=== PATIENT | male | born 1975 | race Caucasian/White ===

== ENCOUNTER 2018-11-17 15:03 | Emergency (ER) | payer BC ==
[2018-11-17 15:43] VITALS: BP 117/85
--- NOTE | 2018-11-17 16:08 | UC ---
General HPI - HPI Summary HPI Summary: posterior left shoulder pain radiating to upper arm and to left elbow, with tingling today. Pt states hx of injury, hit by fork lift 5-6 yrs ago for which he had extensive PT. Pain returned 1 week ago, worsening today. but also bypass pt 2008 Pleasant 43 yo gentleman c/o progressive worse L shoulder pain over the last several days. Did let up but then returned a couple days ago. no recent injury , but did have an injury several years ago, forklift hit post left shoulder. Some pain in lower neck too, starting about the same time as shoulder. Pain radiates down back of elbow ulcer region to prox left forearm. R handed. No weakness or distal dysesthesia. Works at [employer]. - History of Current Complaint Chief Complaint: UCUpperExtremity Stated Complaint: L SHOULDER PAIN Hx Obtained From: Patient Pain Intensity: 7 - Allergy/Home Medications Allergies/Adverse Reactions: Allergies Allergy/AdvReac Type Severity Reaction Status Date / Time cephalexin Allergy Intermediate n/v and Verified 11/17/18 15:44 ineffective PMH/Surg Hx/FS Hx/Imm Hx Previously Healthy: No - see hpi - Surgical History Surgical History: Yes Surgery Procedure, Year, and Place: gastric Bypass 2018. Cardiac double bypass 2007. left hip replaced - Social History Alcohol Use: None Substance Use Type: None Smoking Status (MU): Never Smoked Tobacco Type: Smokeless Tobacco Review of Systems All Other Systems Reviewed And Are Negative: Yes Constitutional: Positive: Negative, Other - see hpi Skin: Positive: Negative Eyes: Positive: Negative ENT: Positive: Negative Respiratory: Positive: Negative Cardiovascular: Positive: Negative Gastrointestinal: Positive: Negative Genitourinary: Positive: Negative Motor: Positive: Other - see hpi Neurovascular: Positive: Other - see hpi Musculoskeletal: Positive: Other: - see hpi Neurological: Positive: Other - see hpi Psychological: Positive: Negative Is Patient Immunocompromised?: No Physical Exam Triage Information Reviewed: Yes Appearance: Well-Nourished - sitting up. nad, but looks uncomfortble Vital Signs: Initial Vital Signs Temp 99 F 11/17/18 15:35 Pulse 86 11/17/18 15:35 Resp 17 11/17/18 15:35 BP 117/85 11/17/18 15:35 Pulse Ox 97 11/17/18 15:35 Vital Signs Reviewed: Yes Eye Exam: Normal ENT Exam: Normal Neck exam: Other - + arthritic evidence. + tender lower cervical L>R and upper thoracic L>R no point bone tenderness. + tender L post shoulder, + ac region. sign shoulder crepitus. ROM shoulder limited active and passive to approx 95 deg. + ax n sens present to LT Distal NVI. Good grasp and good distal pulses Respiratory Exam: Normal Respiratory: Positive: Chest non-tender, Lungs clear, Normal breath sounds, No respiratory distress, No accessory muscle use Cardiovascular Exam: Normal Cardiovascular: Positive: Pulses Normal Abdominal Exam: Normal Abdomen Description: Positive: Nontender Musculoskeletal Exam: Other - see neck Neurological Exam: Other - see neck Psychological Exam: Normal - conversing easily and appropriately Skin Exam: Normal - no visible or reported rash Course/Dx - Course Course Of Treatment: Reviewed shoulder xray report (completed prior to examination) d/w pt. Suspect concomitant neck / back challenges. xrays ordered, cervical and thoracic. reviewed with pt. Reports in [employer]. [facility] Reference #: [id number] oxycodone #32 11/18/2017 (one year) Reviewed usual narc talk / questions. No immediate issues reported. Not able to take nsaids d/t hx gastric bypass. F/u PCP and orthopedist. His orthopedist is in [place]. advised to f/u pcp re pain issues / medication (nsaid alt?) Sling - if not uncomfortable to neck - for comfort re shoulder as needed. Reviewed coa / tx plan. Questions as posed answered to the best of my ability. Declines work note. - Diagnoses Provider Diagnosis: Arthritis, AC (acromioclavicular) joint arthritis, DJD (degenerative joint disease) Discharge - Sign-Out/Discharge Documenting (check all that apply): Patient Departure All imaging exams completed and their final reports reviewed: Yes - Discharge Plan Condition: Stable Disposition: HOME Prescriptions: Hydrocodone/Acetaminophen [[place] 5-325 Tablet] 1 each PO Q4H #24 tablet MDD 6 Patient Education Materials: Osteoarthritis (ED), Degenerative Disc Disease (ED ) Referrals: No Primary Care Phys,NOPCP [Primary Care Provider] - Armand Burks MD [Medical Doctor] - Additional Instructions: Sling for comfort as needed. Do not wear sling if your neck hurts, or if your pain worsens. Be sure to follow up with your primary care physician in [place] - call tomorrow to schedule appointment for next week. Schedule an appointment with your orthopedic surgeon. If you are not able to follow with your orthopedic surgeon in [place], then you may follow with orthopedics here in [place]. Do not drive or operate heavy machinery while taking prescription pain medication. - Billing Disposition and Condition Condition: STABLE Disposition: Home
== END 2018-11-17 17:49 | disposition home or self-care (01) ==
LOC: UCEAST 15:03
DX: M19.012 Primary osteoarthritis, left shoulder (principal); Z98.84 Bariatric surgery status
CPT/HCPCS: 72050; 72070; 99203; G0463

== ENCOUNTER 2019-02-02 05:42 | Observation (INO) | payer BC ==
[~2019-02-02 05:42] MED LIST: Buffered Lidocaine 1% SYRIN* 1 ML/SYRINGE INTRADERM ONE; Tranexamic Acid 1,000 MG in NS 0.9% 50 ML* (outpatient use) IV SCH; Vancomycin(*) 1,000 MG in NS 0.9% 250 ML* 250 ML IVPB SCH
--- OUTSIDE RECORDS SUMMARY | 2019-02-02 05:45 | XMS REPORT | Continuity of Care Document ---
:1975 External Reference #:[id number] Author Name Bethanie Schultz MD (transmitted by agent of provider Nora Roberts ) Address [address] [place] [address] [place] [address] Care Team Providers Name Role Phone Fredis Hatch MD - Internal Medicine Care Team Information Loan Examiner Problems Description No Active Problems Social History Type Date Description Comments Sex Unknown ETOH Use Denies alcohol use Smoking Uses Chewing Tobacco Recreational Drug Use Denies Drug Use Exercise Type/Frequency Exercises regularly Allergies, Adverse Reactions, Alerts Active Allergies Reaction Severity Comments Date Antibiotic PT Unsure The Name 01/06/2019 Medications Active Medications SIG Qnty Indications Ordering Provider Date Omeprazole 1 by mouth 90capalma Burks MD 11/22/2018 20mg Capsules every day Simvastatin 1 by mouth Unknown 40mg Tablets every day Lisinopril 1 by mouth Unknown 5mg Tablets every day History Medications Medrol take as directed 1pjocelyn Burks MD 11/22/2018 - 4mg TBPK 01/06/2019 Immunizations Description No Information Available Vital Signs Date Vital Result Comment 01/06/2019 9:05am Height 64 inches 5'4" Weight 183.00 lb Heart Rate 62 /min BP Systolic Sitting 124 mmHg BP Diastolic Sitting 82 mmHg O2 % BldC Oximetry 93 % BMI (Body Mass Index) 31.4 kg/m2 11/22/2018 11:30am Height 64 inches 5'4" Weight 183.00 lb Heart Rate 72 /min BP Systolic 128 mmHg BP Diastolic 80 mmHg Respiratory Rate 18 /min Body Temperature 98.0 F Pain Level 7 BMI (Body Mass Index) 31.4 kg/m2 Results Description No Information Available Procedures Description No Information Available Medical Devices Description No Information Available Encounters Type Date Location Provider Dx Diagnosis Office Visit 11/22/2018 Orthopedic Services Armand Burks MD M54.2 Cervicalgia 11:00a Of [facility] M54.12 Radiculopathy, cervical region M25.512 Pain in left shoulder Assessments Date Code Description Provider 01/06/2019 M54.2 Cervicalgia Bethanie Schultz MD 01/06/2019 M54.12 Radiculopathy, cervical region Bethanie Schultz MD 01/06/2019 M47.22 Other spondylosis with radiculopathy, Bethanie Schultz MD cervical region 11/22/2018 M54.2 Cervicalgia Armand Burks MD 11/22/2018 M54.12 Radiculopathy, cervical region Armand Burks MD 11/22/2018 M25.512 Pain in left shoulder Armand Burks MD Plan of Treatment 01/06/2019 - Bethanie Schultz MDM54.2 OprugqawgdvP09.12 Radiculopathy, cervical keoivbP62.22 Other spondylosis with radiculopathy, cervical regionFollow up:RV 1 week, one month, three months postop Functional Status Description No Information Available Mental Status Description No Information Available Referrals Refer to Dr Reason for Referral Status Appt Date Bethanie Schultz MD Sent [address] [place] [id number] [phone]
[2019-02-02] MEDS ORDERED: Famotidine IV* 10 MG/ML 2 ML (20 mg) ONE (06:00)
[2019-02-02] MEDS ORDERED: Lactated Ringers 1000 ML Bag* 1,000 ML IV SCH (06:00)
[2019-02-02] MEDS ORDERED: Bupivacaine 0.25% W/EPI* 10 ML SDV ONE (06:44)
[2019-02-02] MEDS ORDERED: Bacitracin INJECTION* 50,000 UNITS ONE (06:44)
[2019-02-02] MEDS ORDERED: Lidocaine 2% PF * 5 ML VIAL ONE (07:30)
[2019-02-02] MEDS ORDERED: Propofol* 10 MG/ML 20 ML BTL ONE (07:30)
[2019-02-02] MEDS ORDERED: fentaNYL* 50 MCG/ML 2 ML VIAL (100 MCG VIAL) ONE (07:31)
[2019-02-02] MEDS ORDERED: Rocuronium* 10 MG/ML VIAL ONE ×2 (07:31→09:18)
[2019-02-02] MEDS ORDERED: Midazolam* 1 MG/ML 2 ML VIAL (2 MG) ONE (07:31)
[2019-02-02] MEDS ORDERED: Metoclopramide IV* 5 MG/ML 2 ML VIAL ONE ×2 (08:33→19:20)
[2019-02-02] MEDS ORDERED: Dexamethasone IV* 4 MG/ML 1 ML (4 MG) ONE ×2 (08:33→08:48)
[2019-02-02] MEDS ORDERED: Ketorolac INJ* 30 MG/ML 1 ML VIAL ONE ×2 (08:33→19:20)
[2019-02-02] MEDS ORDERED: Ondansetron INJ* 2 MG/ML VIAL ONE ×3 (08:33→19:20)
[2019-02-02] MEDS ORDERED: Succinylcholine* 20 MG/ML 10 ML VIAL ONE (08:33)
[2019-02-02] MEDS ORDERED: KETAMINE HCL* 50 MG/ML 10 ML VIAL ONE (08:37)
[2019-02-02] MEDS ORDERED: Phenylephrine 40 MCG/ML SYRINGE ONE (08:41)
[2019-02-02] MEDS ORDERED: VASOPRESSIN 20 UNITS/ML 1 ML VIAL ONE (08:42)
[2019-02-02] MEDS ORDERED: Phenylephrine 10 MG/ML VIAL* 1 ML VIAL ONE (09:22)
[2019-02-02] MEDS ORDERED: Naloxone* 0.4 MG/ML 1 ML VIAL IV PRN (10:22)
[2019-02-02] MEDS ORDERED: DiMENhydriNATE IV* 50 MG/ML VIAL IV PUSH PRN (10:22)
[2019-02-02] MEDS ORDERED: oxyCODONE TAB* 5 MG TAB PO PRN (10:22)
[2019-02-02] MEDS ORDERED: HYDROmorphone INJ1* 1 MG/ML SYRINGE IV PRN (10:22)
[2019-02-02] MEDS ORDERED: Glycopyrrolate IV* 0.2 MG/ML 1 ML VIAL ONE (10:41)
[2019-02-02] MEDS ORDERED: HYDROmorphone INJ1* 1 MG/ML SYRINGE ONE ×3 (10:41→19:20)
[2019-02-02] MEDS ORDERED: Neostigmine Methylsulfate* 1 MG/ML 10 ML VIAL (1 mg/ml) ONE (10:41)
[2019-02-02] MEDS ORDERED: Acetaminophen IV 1GM/100ML * 0 ML ONE (11:06)
[2019-02-02] MEDS ORDERED: oxyCODONE TAB* 5 MG TAB ONE (12:36)
[2019-02-02] MEDS ORDERED: Acetaminophen TAB* 325 MG PO PRN (12:51)
[2019-02-02] MEDS ORDERED: Zolpidem TAB* 10 MG PO PRN (12:51)
[2019-02-02] MEDS ORDERED: Magnesium Hydroxide LIQ* 30 ML UDC PO PRN (12:51)
[2019-02-02] MEDS ORDERED: HYDROcodone/ACETAMIN 5-325 MG* 1 TAB PO PRN (12:51)
[2019-02-02] MEDS ORDERED: Ondansetron INJ* 2 MG/ML VIAL IV PRN (12:51)
--- NOTE | 2019-02-02 15:42 | CONS ---
CC: Dr. Schultz; Dr. Prince Adrian * CONSULTATION REPORT: DATE OF CONSULT: 02/02/19 TIME OF EVALUATION: 2 p.m. REQUESTING PHYSICIAN: Dr. Schultz. PRIMARY CARE PROVIDER: Dr. Prince Adrian. REASON FOR CONSULT: Management of comorbidities. HISTORY OF PRESENT ILLNESS: Mr. Chi is a 43-year-old male with a past medical history of coronary artery disease, hypertension, obstructive sleep apnea, hyperlipidemia, status post Eren-en-Y gastric bypass, status post left total joint replacement, who presented to Dr. Schultz' office with complaints of neck pain radiating to his left upper extremity. As per Dr. Schultz, the patient had tried several conservative treatment modalities, but continued to have significant difficulties with daily activities. He had MRI findings consistent with a left C7 to T1 disk herniation, so Dr. Schultz ' recommendation was for posterior cervical laminoforaminotomy with possible diskectomy at C7 and T1 and the patient was admitted today for the proposed procedure. As per Dr. Schultz, the surgery went well with no significant complications. At the time of my evaluation, the patient is recovering in the PACU and he states he has some soreness at the back of his neck, but otherwise denies any other symptoms. PAST MEDICAL HISTORY: 1. Coronary artery disease, status post CABG in 2007. 2. Hypertension. 3. Obstructive sleep apnea. The patient states that he had a Eren-en-Y gastric bypass and lost a significant amount of weight (as per PCP note, initial weight was 278 in October 2017 and in our system, he now weighs 195 pounds) . He states that at this point he does not wear CPAP any longer. 4. Diet-controlled diabetes. PAST SURGICAL HISTORY: 1. Status post right inguinal hernia repair. 2. Status post left total hip arthroplasty in 2013. MEDICATION LIST: 1. Gabapentin 300 mg p.o. at bedtime. 2. Lisinopril 5 mg p.o. daily. 3. Omeprazole 20 mg p.o. b.i.d. 4. Simvastatin 40 mg p.o. daily. ALLERGIES: The patient had reaction to DOXYCYCLINE, CORTISONE, and LIDOCAINE. FAMILY HISTORY: Reviewed and noncontributory. SOCIAL HISTORY: The patient is not a smoker, but he chews tobacco. He denies alcohol use, but has significant caffeine consumption. Surrogate decision- maker is his significant other, Antonella Diaz, phone number [phone]. REVIEW OF SYSTEMS: A 10-point review of systems was performed and all the pertinent negative and positive findings are in the HPI. PHYSICAL EXAM: Vital Signs: Temperature 98.4, heart rate is 65, respiratory rate is 16, oxygen saturation 95% on room air, blood pressure is 103/53. General: The patient is an overweight gentleman, sitting up in a recliner, in no acute distress. HEENT: Pupils are equal. The patient has a soft C-collar in place and KANCHAN drain is seen in the cervical spine area. CVS: Normal S1, S2. Regular rate and rhythm. Chest: Breath sounds present bilaterally with no added sounds. Abdomen is soft. Bowel sounds are present. Extremities: No edema. Neuro: The patient is alert and oriented x3. He is able to move all 4 extremities. He denies any sensory change at this time. ASSESSMENT AND PLAN: Mr. Chi is a 43-year-old male with a past medical history of diet-controlled type 2 diabetes; coronary artery disease, status post CABG in 2007; hypertension; obstructive sleep apnea, not on CPAP anymore as the patient has lost a significant amount of weight after a Eren-en-Y gastric bypass; hyperlipidemia, who was admitted for an elective posterior cervical laminoforaminotomy with C7 to T1 diskectomy. 1. Postsurgical management will be as per Neurosurgery. 2. Type 2 diabetes. We will check fingersticks a.c. and h.s. and if glucose greater than 180, we will add insulin lispro sliding scale. 3. Hypertension is controlled at this time. We will continue lisinopril with holding parameters. 4. Obstructive sleep apnea. The patient states that after significant weight loss he has not needed CPAP anymore. At this time, we are going to monitor his pulse oximetry for the next 24 hours. 5. Coronary artery disease, status post CABG. The patient will be monitored on telemetry. It is unclear from the records why the patient is not on aspirin. Even before surgery, I do not see documentation of aspirin on his list and metoprolol had been discontinued before. 6. Gastroesophageal reflux disease. We will continue omeprazole. 7. DVT prophylaxis will be with SCDs for now. He will have pharmacological prophylaxis if deemed appropriate by Neurosurgery. 8. Code status is full. TIME SPENT: Approximately 45 minutes was spent with the patient and family's interview, medical records review, physical examination to complete this admission, more than half of this time was spent [id number] with the patient and coordination of care. [id number]/[facility] #: [id number] ZAID
--- NOTE | 2019-02-02 17:48 | PN ---
Hospitalist Progress Note Date of Service: 02/02/19 HOSPITALIST ADDENDUM Patient noted to have irregular rhythm on Telemetry. EKG shows sinus arrhythmia at 64bpm. Will continue to monitor.
[2019-02-02] MEDS: HYDROcodone/ACETAMIN 5-325 MG* 1 TAB PO PRN (19:06)
[2019-02-02] MEDS ORDERED: Dextrose 50% VIAL 50 ml IV PUSH PRN (19:13)
[2019-02-02] MEDS ORDERED: Acetaminophen IV 1GM/100ML * 100 ML ONE (19:20)
--- NOTE | 2019-02-02 19:52 | OP ---
DATE OF OPERATION: 02/02/19 - ROOM #335 DATE OF : 71 SURGEON: Bethanie Schultz MD YARDAGE ESTIMATOR: KARLOS Molina. The case was done with the assistance of KARLOS because of the complexity of the case. ANESTHESIA: General. PRE-OP DIAGNOSIS: Left C7-T1 herniated nucleus pulposus. POST-OP DIAGNOSIS: Left C7-T1 herniated nucleus pulposus. OPERATIVE PROCEDURE: The patient underwent left C7-T1 laminoforaminotomy with partial diskectomy. ESTIMATED BLOOD LOSS: 35 cc. COMPLICATIONS: None. SUMMARY: The patient is a very pleasant 43-year-old gentleman with complaints of severe left upper extremity pain, weakness and loss of sensation with MRI findings consistent with multilevel degenerative disk disease with large left C7 -T1 herniated nucleus pulposus. After failing conservative treatment modalities , he was offered the option of surgical intervention in the form of a left C7- T1 laminoforaminotomy. After discussing in extent with the patient and his family including his mother and his fiancee regarding the expectations, limitations, and possible complications of the procedure with complications including, but not limited to bleeding, infection, risk of injury to adjacent structures, coma, paralysis, , need for additional procedures, anesthesia risks, stroke, blindness, cancer, instability, cervicothoracic kyphosis, recurrence of disk herniation, persistence of pain, spinal fluid leak, postoperative hematoma, spinal cord injury, terminal nerve damage, neuropathy, reflex sympathetic dystrophy, need for tracheostomy or gastrostomy, need for prolonged ICU stay, prolonged rehabilitation, prolonged hospitalization, deep venous thrombosis, pulmonary embolism, heart attack; the patient was agreeable to proceed with surgery and informed consent was obtained. The patient understood that his condition may not improve and in fact may get worse after surgery and that he may need to have additional procedures in the future. He also understood that operative plan may be modified according to intraoperative findings and conditions and that the procedure may be aborted or done in more than 1 stages. DESCRIPTION OF PROCEDURE: The patient was brought to the operating room and was placed under general anesthesia by the anesthesia team. He was carefully positioned prone on the Steve table and all bony prominences were meticulously padded. His skin was prepped and draped in the standard fashion and after appropriate surgical pause and patient identification, a small incision over the C6 to T2 spinous processes was marked on the skin. The skin was infiltrated with local anesthetic and after incising the skin with #10 surgical blade, the incision was carried down to the subcutaneous tissue with Bovie cautery. Self-retaining retractors were introduced into the field. The dorsal fascia was then divided in left side of the midline with use of Bovie cautery and the paraspinal musculature was elevated in subperiosteal fashion with use of periosteal elevator and Bovie cautery. The tubular METRx retractor system was then introduced into the field. A 22-mm tube was used for this case. Intraoperative fluoroscopic imaging confirmed appropriate surgical level and microscope was brought into the view. After exposing the lamina of C7 and T1 as well as the facet at C7 and T1, high-speed drill and #1 Kerrison punches were used to perform a medial facetectomy and foraminotomy. The ligamentum flavum was then gently reflected and removed with #1 Kerrison punches and after meticulous hemostasis, copious irrigation and meticulous inspection, the pedicle of C1 was gently skeletonized in the medial and superior aspect with use of #1 Kerrison. Then, a small micro nerve hook was used to palpate underneath the thecal sac and the nerve root and large protrusion under the posterior longitudinal ligament was identified as expected from the preoperative imaging. After gently incising the posterior longitudinal ligament , large disk fragments were readily identified and were gently removed with use of nerve hook and micro pituitary. At the end of the decompression and diskectomy, the thecal sac as well as the nerve root was found to be free of any pressure phenomenon and after confirmation of meticulous hemostasis, copious irrigation and meticulous inspection, the O-arm was brought into the field in order to confirm the appropriate surgical level. O-arm imaging confirmed the surgical level and after removing the tubular retractor and confirmation of meticulous hemostasis, copious irrigation and meticulous inspection, the wound was closed by layers over a Clovis drain which was tunneled through a separate stab wound incision. The dorsal fascia was approximated with 0 interrupted Vicryl sutures while the subcutaneous tissue was approximated with 2-0 inverted interrupted Vicryl sutures. The skin was then covered with Dermabond. At the end of the procedure, all counts were reported to be correct. The patient remained hemodynamically stable throughout the case. The patient was then turned supine, was extubated and was transferred to Recovery in excellent condition. [id number]/[facility] #: [id number] ZAID
[2019-02-02] MEDS ORDERED: Gabapentin CAP(*) 300 MG PO SCH (21:00)
[2019-02-02] MEDS: Insulin LISPRO* 1 UNITS UNIT SUBCUT SCH (21:57)
[2019-02-02] MEDS: Pantoprazole TAB * 40 MG TAB PO SCH (21:59)
[2019-02-03] MEDS: Pantoprazole TAB * 40 MG TAB PO SCH (07:42)
[2019-02-03] MEDS: HYDROcodone/ACETAMIN 5-325 MG* 1 TAB PO PRN (07:42)
[2019-02-03] MEDS: Insulin LISPRO* 1 UNITS UNIT SUBCUT SCH (07:47)
[2019-02-03] MEDS ORDERED: Atorvastatin* 20 MG TAB PO SCH (09:00)
[2019-02-03] MEDS ORDERED: Lisinopril TAB* 5 MG PO SCH (09:00)
[2019-02-03 12:22] VITALS: BP 120/68
--- NOTE | 2019-02-03 21:25 | PN ---
Progress Note - Progress Note Date of Service: 02/03/19 SOAP: Subjective: []Patient was seen earlier today. No events ON. Preop LUE pain resolved. Ambulates, Tolerates PO well, Voids. Wants to go home Objective: []VSS, Afebrile Wounds,c,d Drain output noted. Drain was removed. Catheter appeared to be intact. No complications. Patient tolerated procedure well. AAOx3 FALLON, CN II-XII grossly intact Motor 5/5 all extremities Sensory grossly intact to light touch Assessment: []43 yom POD#1 Left C7-T1 laminoforaminotomy Plan: []Monitor VS, Neurochecks OOB as tolerated with assistance. DC planning for NS standpoint. Full instructions were given. No bending, no lifting, no driving Keep incision dry for two days. May shower, No baths Follow up in office in 7-10 days. Patient was found to have bradycardia on tele. Will keep monitoring per IM. Appreciate IM care. Maura Schultz MD
--- NOTE | 2019-02-04 13:16 | PN ---
Progress Note - Progress Note Date of Service: 02/04/19 Note: Patient did very well and was dc today prior to rounds Appreciate IM care. Maura Schultz MD
--- NOTE | 2019-02-04 19:06 | DS ---
CC: Dr. Prince Adrian; Dr. Bethanie Schultz * DISCHARGE SUMMARY: DATE OF ADMISSION: 02/02/19 DATE OF DISCHARGE: 02/03/19 PRIMARY CARE PROVIDER: Dr. Prince Adrian. MY ATTENDING WHILE IN THE HOSPITAL: Dr. Gamaliel Mancia.* (DICTATED BY DORA MEYER) NEUROSURGEON: Dr. Bethanie Schultz. PRIMARY DISCHARGE DIAGNOSIS: Spinal stenosis, status post cervical laminoforaminotomy and partial diskectomy. SECONDARY DISCHARGE DIAGNOSES: 1. Diabetes mellitus type 2. 2. Coronary artery disease. 3. Obstructive sleep apnea. 4. History of gastric bypass. 5. Hypertension. 6. Status post coronary artery bypass grafting. STUDIES DONE WHILE IN THE HOSPITAL: EKG from 02/02/19 shows sinus arrhythmia. No significant abnormalities. No hypertrophy or enlargement. No ST segment elevation or depression. Normal axis. MEDICATIONS AT DISCHARGE: 1. Omeprazole 20 mg p.o. b.i.d. 2. Lisinopril 5 mg p.o. daily. 3. Simvastatin 1 tab p.o. daily. 4. Gabapentin 300 mg p.o. at bedtime. 5. Tylenol 650 mg p.o. q.4 hours as needed. 6. [place] 5/325 one to two tabs p.o. q.4 hours as needed for [id number]-[id number] pain. HOSPITAL COURSE: This is a brief summary of the patient's presentation. For more details, please see the history and physical from Dr. Bethanie Schultz on 02/02/19 as well as the consultation from Dr. Claudia Tejada on 02/02/19. In brief, the patient is a 43-year-old male with past medical history significant for the above, who was evaluated by Dr. Schultz for neck pain radiating to his left upper extremity. After failing conservative measures, the patient underwent an elective posterior cervical laminoforaminotomy with microdiskectomy on 02/02/19 and had no complications related to this. The patient was in a [place] J-collar and a soft brace after the surgery. The patient was found to have elevated blood sugars and was started on insulin while in the hospital. The patient had no other significant abnormalities. The patient was able to perform well with physical therapy and had minimal pain. The patient had an EKG as above for irregular heartbeat showing sinus arrhythmia. The patient was able to be weaned off IV pain medication. The patient's hemoglobin A1c checked which was at 6.4. The patient was stable and amenable for discharge to home on 02/03/19. PHYSICAL EXAM ON THE DAY OF DISCHARGE: General: The patient is a 43-year-old male, who appears stated age and sitting comfortably in bed, in no acute distress. The patient is in a soft surgical collar. HEENT: Head normocephalic , atraumatic. Sclerae anicteric. No conjunctival injection. Nasal mucosa moist. Oral mucosa moist. No pharyngeal erythema, discharge, or exudate. Vital Signs: Temperature 97.7, pulse rate 66, respiratory rate 18, oxygen saturation 95% on room air, blood pressure 120/68. Neck: Supple, nontender. No lymphadenopathy. Surgical incision without drainage, covered by bulky dressing, not visualized. Cardiac: Regular rate and rhythm. No clicks, murmurs, gallops, or rubs. Pulses are 2+ in the bilateral dorsalis pedis, posterior tibialis, and radial areas. Respiratory: Clear to auscultation bilaterally. No wheezes, rales, or rhonchi. Good air exchange bilaterally. Abdomen: Soft, nontender, nondistended. Bowel sounds present and normoactive in all 4 quadrants. No hepatosplenomegaly. No abdominal bruits auscultated. No hepatojugular reflux. Genitourinary: No suprapubic or CVA tenderness. Skin : Clean, dry, and intact. No rash. Neuro: Cranial nerves II through XII intact. No focal deficits. Alert and oriented x3. Psychiatric: Pleasant and cooperative. DISCHARGE PLAN BY PROBLEM: 1. Cervical spinal stenosis due to herniated nucleus pulposus. The patient is status post surgery and doing well. The patient will have a soft collar for comfort. The patient should have no lifting, bending, or driving until cleared by his surgeon. The patient will have a wound check in 7 to 10 days. The patient should not take a bath, leave his dressing on for 2 days before taking a full shower. The patient should have Percocet for pain control and gabapentin as above. 2. Diabetes mellitus type 2. The patient has hemoglobin A1c of 6.4. Discussed with the patient that he should follow up with his primary care provider to discuss possible initiation of treatment. The patient's blood sugars were trending down after his surgery without intervention while in the hospital. 3. Hypertension. The patient was normotensive while in the hospital. Continue his lisinopril. 4. GERD. Continue the patient's omeprazole. 5. Hyperlipidemia. Continue the patient's simvastatin. CONDITION: Stable. DISPOSITION: Home. TIME SPENT: Approximately 60 minutes was spent on the discharge of this patient , 30 of which was spent [id number] with the patient obtaining history and physical and discussing treatment plan. DORA MEYER [id number]/[facility] #: [id number] ZAID
== END 2019-02-03 12:58 | disposition home or self-care (01) ==
LOC: INTOOBSV 05:42 → AA 05:42 → SSU 12:51
PROVIDERS: ADMIT Neurological Surgery; ATTEND Internal Medicine
DX: M50.13 Cervical disc disorder with radiculopathy, cervicothoracic region (principal); M47.22 Other spondylosis with radiculopathy, cervical region; M48.00 Spinal stenosis, site unspecified; E11.9 Type 2 diabetes mellitus without complications; I25.10 Atherosclerotic heart disease of native coronary artery without angina pectoris; G47.33 Obstructive sleep apnea (adult) (pediatric); I10 Essential (primary) hypertension; Z98.84 Bariatric surgery status; Z79.899 Other long term (current) drug therapy; E78.5 Hyperlipidemia, unspecified; K21.9 Gastro-esophageal reflux disease without esophagitis; Z95.1 Presence of aortocoronary bypass graft
CPT/HCPCS: 36415; 76000; 83036; 93005; A9270-GY; G0378; J0330; J1100; J1170; J1885; J2250; J2405; J2704; J2710; J2765; J3010; J3370

== ENCOUNTER 2019-03-09 11:12 | Emergency (ER) | payer BC ==
--- OUTSIDE RECORDS SUMMARY | 2019-03-09 11:17 | XMS REPORT | Continuity of Care Document ---
:1975 External Reference #:[id number] Author Name Bethanie Schultz MD (transmitted by agent of provider Nora Roberts ) Address [address] [place] [address] [place] [address] Care Team Providers Name Role Phone Prince Adrian DO - Internal Care Team Information Lifestyle Block Farmer [phone] Medicine Problems Description No Active Problems Social History Type Date Description Comments Sex Unknown ETOH Use Denies alcohol use Smoking Uses Chewing Tobacco Recreational Drug Use Denies Drug Use Exercise Type/Frequency Exercises regularly Allergies, Adverse Reactions, Alerts Active Allergies Reaction Severity Comments Date Antibiotic PT Unsure The Name 01/06/2019 Medications Active Medications SIG Qnty Indications Ordering Provider Date Soft Cervical Collar After surgery at [facility] 01/06/2019 all times MD [place] Omeprazole 1 by mouth every 90caps Armand Burks 11/22/2018 20mg day MD [place] KEYES Simvastatin 1 by mouth every Unknown 40mg day Tablets Lisinopril 1 by mouth every Unknown 5mg day Tablets Gabapentin Take One Capsule Unknown 100mg By Mouth AT Capsules Bedtime For 3 Days Then 2 Capsules For 3 Days Then3 Capsules Thereafter History Medications Medrol take as directed 1pjocelyn Burks MD 11/22/2018 - 4mg TBPK 01/06/2019 Immunizations Description No Information Available Vital Signs Date Vital Result Comment 02/10/2019 8:58am Height 64 inches 5'4" Weight 183.00 lb BP Systolic 124 mmHg BP Diastolic 78 mmHg Pain Level 4 BMI (Body Mass Index) 31.4 kg/m2 01/06/2019 9:05am Height 64 inches 5'4" Weight 183.00 lb Heart Rate 62 /min BP Systolic Sitting 124 mmHg BP Diastolic Sitting 82 mmHg O2 % BldC Oximetry 93 % BMI (Body Mass Index) 31.4 kg/m2 Results Test Date Facility Test Result H/L Range Note Urinalysis Profile 01/25/2019 [facility] Urine Color Yellow [address] [place] [address] [phone] Urine Appearance Clear Urine Specific Bud 1.020 Normal 1.010-1.030 Urine pH 6.0 Normal 5-9 Urine Urobilinogen Positive Abnormal Negative Urine Ketones Negative Negative Urine Protein Negative Negative Urine Leukocytes Negative Negative Urine Blood Negative Negative Urine Nitrite Negative Negative Urine Bilirubin Negative Negative Urine Glucose Negative Negative Inr/Protime 01/25/2019 [facility] Inr 1.06 Normal 0.82-1.09 1 [address] [place] [address] [phone] Laboratory test 01/25/2019 [facility] Partial 38.4 High 26.0- 38.0 finding [facility] [place] [address] Time PTT [phone] CBC No Diff 01/25/2019 [facility] White Blood 4.4 10^3/uL Normal 3.5-10.[address] [place] [address] [phone] Red Blood Count 5.45 10^6/uL Normal 4.18-5.48 Hemoglobin 14.6 g/dL Normal 14.0-18.0 Hematocrit 45 % Normal 42-52 Mean Corpuscular Volume 83 fL Normal 80-94 Mean Corpuscular Hemoglobin 27 pg Normal 27-31 Mean Corpuscular HGB Conc 32 g/dL Normal 31-36 Red Cell Distribution Width 15 % Normal 10-15 Platelet Count 136 10^3/uL Low 150-450 Mean Platelet Volume 7.8 fL Normal 7.4-10.4 Basic Metabolic 01/25/2019 [facility] Sodium 142 mmol/L Normal 135-[address] [place] [address] [phone] Potassium 4.0 mmol/L Normal 3.5-5.0 Chloride 106 mmol/L Normal 101-111 Co2 Carbon Dioxide 30 mmol/L Normal 22-32 Anion Gap 6 mmol/L Normal 2-11 Glucose 88 mg/dL Normal 70-100 Blood Urea Nitrogen 9 mg/dL Normal 6-24 Creatinine 0.88 mg/dL Normal 0.67-1.17 BUN/Creatinine Ratio 10.2 Normal 8-20 Calcium 9.2 mg/dL Normal 8.6-10.3 Egfr Non- 93.6 >60 Egfr 113.3 >60 2 Type & Screen 01/25/2019 [facility] Patient Blood Type AB Positive [address] [place] [address] [phone] Antibody Screen NEGATIVE 1 Standard intensity warfarin therapeutic range: 2.0-3.0 High intensity warfarin therapeutic range: 2.5-3.5 2 Because ethnic data is not always readily available, this report includes an eGFR for both -Americans and non- Americans. The National Kidney Disease Education Program (NKDEP) does not endorse the use of the MDRD equation for patients that are not between the ages of 18 and 70, are , have extremes of body size, muscle mass, or nutritional status, or are non- or non-. According to the National Kidney Foundation, irrespective of diagnosis, the stage of the disease is based on the level of kidney function: Stage Description GFR(mL/min/1.73 m(2)) 1 Kidney damage with normal or decreased GFR 90 2 Kidney damage with mild decrease in GFR 60-89 3 Moderate decrease in GFR 30-59 4 Severe decrease in GFR 15-29 5 Kidney failure <15 (or dialysis) Procedures Date Code Description Status 01/25/2019 46947 EKG, Interpretation Only Completed Medical Devices Description No Information Available Encounters Type Date Location Provider Dx Diagnosis Office Visit 01/06/2019 [facility] M54.2 Cervicalgia 9:30a Of Filippo Schultz MD M54.12 Radiculopathy, cervical region Office Visit 11/22/2018 11:00a [facility] Armand Burks M54.2 Cervicalgia at [place] M54.12 Radiculopathy, cervical region M25.512 Pain in left shoulder Assessments Date Code Description Provider 02/10/2019 M54.2 Cervicalgia Bethanie Schultz MD 02/10/2019 M47.22 Other spondylosis with Bethanie Schultz MD radiculopathy, cervical region 01/25/2019 I25.10 Atherosclerotic heart disease of Prince Grigsby M.D., [facility] [place] coronary artery without angina pectoris 01/09/2019 M54.2 Cervicalgia Bethanie Schultz MD 01/09/2019 M54.12 Radiculopathy, cervical region Bethanie Schultz MD 01/09/2019 M47.22 Other spondylosis with Bethanie Schultz MD radiculopathy, cervical region 01/06/2019 M54.2 Cervicalgia Bethanie Schultz MD 01/06/2019 M54.12 Radiculopathy, cervical region Bethanie Schultz MD 11/22/2018 M54.2 Cervicalgia Armand Burks MD 11/22/2018 M54.12 Radiculopathy, cervical region Armand Burks MD 11/22/2018 M25.512 Pain in left shoulder Armand Burks MD Plan of Treatment Future Appointment(s):05/10/2019 1:30 pm - DORA Montelongo at [facility]03/10/2019 1:30 pm - DORA Montelongo at [facility]02/10/2019 - Bethanie Schultz, MDM54.2 [id number] Other spondylosis with radiculopathy, cervical regionFollow up:RV in 1 month Functional Status Description No Information Available Mental Status Description No Information Available Referrals Refer to Reason for Referral Status Appt Date Bethanie Schultz MD Sent [address] [place] [phone]
--- OUTSIDE RECORDS SUMMARY | 2019-03-09 11:17 | XMS REPORT | Continuity of Care Document ---
:1975 External Reference #:[id number] Author Name Rickie Cox MD, [facility] (transmitted by agent of provider Nisha Mosley) Address [address] [place] [phone] Care Team Providers Name Role Phone Prince Adrian DO - Internal Care Team Information Senior Design Engineer Medicine Problems Description No Active Problems Social [...] Date Soft Cervical Collar After surgery at [facility] 01/06/2019 all times MD [place] Omeprazole 1 by mouth every 90caps Armand Burks MD 11/22/[address] Simvastatin 1 by mouth every Unknown 40mg day Tablets Lisinopril 1 by mouth every Unknown 5mg Tablets day History Medications Medrol take as directed maday Burks MD 11/22/2018 - 4mg TBPK 01/06/2019 [...] Result H/L Range Note Urinalysis Profile 01/25/2019 [facility] Urine [place] [place] [address] [phone] Urine Appearance Clear Urine Specific [place] 1.020 Normal 1.010-1.030 Urine pH 6.0 Normal 5-9 Urine Urobilinogen Positive Abnormal Negative Urine Ketones Negative Negative Urine Protein Negative Negative Urine Leukocytes Negative Negative Urine Blood Negative Negative Urine Nitrite Negative Negative Urine Bilirubin Negative Negative Urine Glucose Negative Negative Inr/Protime 01/25/2019 [facility] Inr 1.06 Normal 0.82-1.[address] [place] [address] [phone] Laboratory test 01/25/2019 [facility] Partial 38.4 High 26.0- 38.[address] [place] [address] Time PTT [phone] CBC No Diff 01/25/2019 [facility] White Blood 4.4 10^3/uL Normal 3.5-10.8 [facility] [place] [address] [phone] Red Blood Count 5.45 10^6/uL Normal 4.18-5.48 Hemoglobin 14.6 g/dL Normal 14.0-18.0 Hematocrit 45 % Normal 42-52 Mean Corpuscular Volume 83 fL Normal 80-94 Mean Corpuscular Hemoglobin 27 pg Normal 27-31 Mean Corpuscular HGB Conc 32 g/dL Normal 31-36 Red Cell Distribution Width 15 % Normal 10-15 Platelet Count 136 10^3/uL Low 150-450 Mean Platelet Volume 7.8 fL Normal 7.4-10.4 Basic Metabolic 01/25/2019 [facility] Sodium 142 mmol/L Normal 135-145 [place] [address] [phone] Potassium 4.0 mmol/L Normal 3.5-5.0 Chloride 106 mmol/L Normal 101-111 Co2 Carbon Dioxide 30 mmol/L Normal 22-32 Anion Gap 6 mmol/L Normal 2-11 Glucose 88 mg/dL Normal 70-100 Blood Urea Nitrogen 9 mg/dL Normal 6-24 Creatinine 0.88 mg/dL Normal 0.67-1.17 BUN/Creatinine Ratio 10.2 Normal 8-20 Calcium 9.2 mg/dL Normal 8.6-10.3 Egfr Non- 93.6 >60 Egfr 113.3 >60 2 Type & Screen 01/25/2019 [facility] Patient Blood Type AB Positive [address] [place] [address] [phone] Antibody Screen NEGATIVE 1 Standard intensity warfarin [...] dialysis) Procedures Date Code Description Status 01/25/2019 86446 EKG, Interpretation Only Completed Medical Devices Description No Information Available Encounters Type Date Location Provider Dx Diagnosis Office Visit 01/06/2019 [facility] M54.2 Cervicalgia 9:30a Of Filippo Schultz MD M54.12 Radiculopathy, cervical region Office Visit 11/22/2018 11:00a [facility] Armand Burks M54.2 Cervicalgia at [place] M54.12 Radiculopathy, cervical region M25.512 Pain in left shoulder Assessments Date Code Description Provider 01/09/2019 M54.2 Cervicalgia Bethanie Schultz MD 01/09/2019 M54.12 Radiculopathy, cervical region Bethanie Schultz MD 01/09/2019 M47.22 Other spondylosis with radiculopathy, Bethanie Schultz MD cervical region 01/06/2019 M54.2 Cervicalgia Bethanie Schultz MD 01/06/2019 M54.12 Radiculopathy, cervical region Bethanie Schultz MD 11/22/2018 M54.2 Cervicalgia Armand Burks MD 11/22/2018 M54.12 Radiculopathy, cervical region Armand Burks MD 11/22/2018 M25.512 Pain in left shoulder Armand Burks MD Plan of Treatment Future Appointment(s):05/10/2019 1:30 pm - DORA Montelongo at [facility]03/10/2019 1:30 pm - DORA Montelongo at [facility]02/10/2019 9:00 am - Bethanie Schultz MD at [facility]01/06/2019 - Bethanie Schultz MDM54.2 [id number] Radiculopathy , cervical region Functional Status Description No Information Available Mental Status Description No Information Available Referrals Refer to Dr Reason for Referral Status Appt Date Bethanie Schultz MD Sent [address] [place] [phone]
[2019-03-09 11:19] VITALS: BP 148/81
--- NOTE | 2019-03-09 12:24 | UC ---
FLU HPI - HPI Summary HPI Summary: Patient is a 43-year-old male presenting with complaint of body aches and chills 5 days. Patient states this happened after returning home from hunting last Wednesday night and has gradually worsened. Notes mild dry cough. Denies other URI symptoms. Also notes frequency and burning with urination that occurred 2 days ago and persists today. Also notes lower back pain 2 days. Denies hematuria. Denies abnormal discharge. Denies fevers. Patient also adds that the top of his scalp hurts. Denies abdominal pain. Denies nausea or vomiting. Notes diarrhea x2 days. Has taken otc cold and flu meds without relief. - History of Current Complaint Chief Complaint: UCGeneralIllness Stated Complaint: FLU SYMPTOMS Hx Obtained From: Patient Onset/Duration: Gradual Onset, Lasting Days Severity Currently: Mild Severity Initially: Moderate Pain Intensity: 4 Pain Scale Used: 0-10 Numeric - Allergy/Home Medications Allergies/Adverse Reactions: Allergies Allergy/AdvReac Type Severity Reaction Status Date / Time cortisone Allergy Severe Hives Verified 03/09/19 11:19 cephalexin Allergy Intermediate n/v and Verified 03/09/19 11:19 ineffective doxycycline Allergy Intermediate Nausea And Verified 03/09/19 11:19 Vomiting lidocaine Allergy Unknown Unknown Verified 03/09/19 11:19 Reaction Details PMH/Surg Hx/FS Hx/Imm Hx Endocrine History: Dyslipidemia Cardiovascular History: Hypertension GI/ History: Gastroesophageal Reflux - Surgical History Surgical History: Yes Surgery Procedure, Year, and Place: gastric Bypass 2018. Cardiac double bypass 2007. left hip replaced. [facility],spinal surgery - Family History Known Family History: Positive: Non-Contributory - Social History Alcohol Use: None Substance Use Type: None Smoking Status (MU): Never Smoked Tobacco Type: Smokeless Tobacco - Immunization History Most Recent Influenza Vaccination: 2019 Most Recent Pneumonia Vaccination: none Review of Systems All Other Systems Reviewed And Are Negative: Yes Constitutional: Positive: Chills, Fatigue Respiratory: Positive: Cough. Negative: Shortness Of Breath Cardiovascular: Positive: Negative. Negative: Chest Pain Gastrointestinal: Positive: Diarrhea. Negative: Abdominal Pain, Vomiting, Nausea Genitourinary: Positive: Frequency. Negative: Hematuria, Vaginal/Penile Burning , Vaginal/Penile Pain Musculoskeletal: Positive: Arthralgia, Myalgia Neurological: Positive: Negative Physical Exam Triage Information Reviewed: Yes Appearance: No Pain Distress - whole body shivering/teeth chattering, Ill- Appearing Vital Signs: Initial Vital Signs Temp 99.4 F 03/09/19 11:17 Pulse 98 03/09/19 11:17 Resp 18 03/09/19 11:17 BP 148/81 03/09/19 11:17 Pulse Ox 100 03/09/19 11:17 Lab Results 03/09/19 03/09/19 Range/Units 12:45 12:48 POC Urine Color Elise POC Urine Clarity Clear POC Urine pH 6.0 (5-9) POC Ur Specif Tow 1.020 (1.010-1.030) POC Urine Protein 1+ A (Negative) POC Ur Glucose (UA) 2+ A (Negative) POC Urine Ketones Trace A (Negative) POC Urine Blood Trace-intact A (Negative) POC Urine Nitrite Negative (Negative) POC Urine Bilirubin 1+ A (Negative) POC Urine Urobilinogen >=8.0 A (Negative) POC U Leukocyte Esteras Negative (Negative) Influenza A (Rapid) Negative (Negative) Influenza B (Rapid) Negative (Negative) Vital Signs Reviewed: Yes Eyes: Positive: Conjunctiva Clear ENT Exam: Normal ENT: Positive: Normal ENT inspection, Hearing grossly normal Neck: Positive: Supple, Nontender Respiratory Exam: Normal Respiratory: Positive: Lungs clear, Normal breath sounds, No respiratory distress. Negative: Crackles, Rhonchi, Stridor, Wheezing Cardiovascular Exam: Normal Cardiovascular: Positive: RRR Abdominal Exam: Normal Abdomen Description: Positive: Nontender, Soft Neurological: Positive: Alert Psychological: Positive: Age Appropriate Behavior Diagnostics - Radiology No standard instances Radiology Interpretation Completed By: Radiologist Flu Course/Dx - Course Course Of Treatment: Based on patient presentation, history, and UA results, I recommended patient being transferred to the ED for further testing. Patient declined transfer via ambulance and agreed to drive himself straight from here. Discussed patient with Dr. Casey who also agreed with plan. Patient stable upon departure. - Differential Dx/Diagnosis Provider Diagnosis: Urinary frequency, Generalized body aches, Shaking chills Discharge ED - Sign-Out/Discharge Documenting (check all that apply): Patient Departure All imaging exams completed and their final reports reviewed: No - Discharge Plan Condition: Stable Disposition: HOME-RECOMMEND TO ED Referrals: Kaylah SCHAEFER,Prince Rider [Primary Care Provider] - Additional Instructions: The provider that evaluated you today thinks that you need additional testing that can be completed the emergency department. It is recommended that you go directly to emergency department for further evaluation. This evaluation included blood work or imaging. This testing will be directed and decided by the provider that evaluates you at the emergency department. If pain becomes worse, you feel lightheaded, you have uncontrolled vomiting, or you have any other concerns while you are being driven to emergency department as recommended to pullover and contact 911. - Billing Disposition and Condition Condition: STABLE Disposition: Home-Recommend to ED - Attestation Statements Provider Attestation: Per institutional requirements, I have reviewed the chart, however, I was not consulted specifically or made aware of this patient by the midlevel provider. I did not personally evaluate, interact with , or disposition this patient.
[2019-03-09 13:00] LABS: Influenza A Molecular NEGATIVE (Negative); Influenza B Molecular NEGATIVE (Negative)
== END 2019-03-09 13:20 | disposition home health service (06) ==
LOC: UCEAST 11:12
DX: R68.83 Chills (without fever) (principal); R52 Pain, unspecified; R35.0 Frequency of micturition; I10 Essential (primary) hypertension; R05 Cough; R19.7 Diarrhea, unspecified; Z88.8 Allergy status to other drugs, medicaments and biological substances; Z88.1 Allergy status to other antibiotic agents
CPT/HCPCS: 81003; 99212; G0463

== ENCOUNTER 2019-03-09 14:07 | Emergency (ER) | payer BC ==
[2019-03-09 17:14] LABS: ABS Lymphocytes 0.4 10^3/ul (1.0-4.8); ABS Monocytes 0.4 10^3/ul (0-0.8); ABS Neutrophils 6.4 10^3/ul (1.5-7.7); Hematocrit 47 % (42-52); Hemoglobin 15.7 g/dL (14.0-18.0); Lymphocyte % 5.2 %; Mean Corpuscular HGB Conc 33 g/dL (31-36); Mean Corpuscular Hemoglobin 27 pg (27-31); Mean Corpuscular Volume 82 fL (80-94); Mean Platelet Volume 7.4 fL (7.4-10.4); Platelet Count 122 10^3/uL (150-450); Red Blood Count 5.73 10^6 /uL (4.18-5.48); Red Cell Distribution Width 14 % (10-15); White Blood Count 7.2 10^3/uL (3.5-10.8)
[2019-03-09 17:23] LABS: INR 1.35 (0.82-1.09)
[2019-03-09 17:47] LABS: Albumin 4.4 g/dL (3.2-5.2); Albumin/Globulin Ratio 1.4 (1-3); BUN/Creatinine Ratio 16.9 (8-20); C Reactive Protein 225.81 mg/L (<8.01); Calcium 9.5 mg/dL (8.6-10.3); EGFR African American 111.8 (>60); EGFR Non-African American 92.4 (>60); Globulin 3.1 g/dL (2-4); Potassium 3.8 mmol/L (3.5-5.0); Total Bilirubin 1.5 mg/dL (0.2-1.0); Total Protein 7.5 g/dL (6.4-8.9)
[2019-03-09 17:48] LABS: Troponin I 0.02 ng/mL (<0.03)
[2019-03-09 18:49] LABS: Urine Appearance Clear; Urine Bilirubin Negative (Negative); Urine Blood 1+ (Negative); Urine Color Amber; Urine Glucose Negative (Negative); Urine Ketones 2+ (Negative); Urine Nitrite Negative (Negative); Urine Protein 1+(30 mg/dL) (Negative); Urine Specific Gravity 1.029 (1.010-1.030); Urine Urobilinogen Positive (Negative)
[2019-03-09 18:55] LABS: Urine Bacteria Absent (Absent); Urine Red Blood Cell 2+(6-10/hpf) (Absent); Urine Squamous Epithelial Cell Present (Absent); Urine White Blood Cell 3+(>20/hpf) (Absent)
[2019-03-09 19:35] VITALS: BP 133/81
--- NOTE | 2019-03-09 19:41 | ED ---
Influenza-Like Illness - HPI Summary HPI Summary: 43-year-old male presents from urgent care with 5 day history of general malaise , chills, and body aches. States 2 days ago he started developing dysuria and frequency. History of kidney stones. Patient also notes that symptoms began after [place] had been [place] but there is no known history of tick bite. Patient and negative rapid flu test in urgent care. Denies fever, rash, nasal congestion, ear pain, sore throat, cough, chest pain, palpitations, shortness of breath, abdominal pain, flank pain, nausea, or vomiting. - History of Current Complaint Chief Complaint: EDGeneral Time Seen by Provider: 03/09/19 17:47 Hx Obtained From: Patient - Allergy/Home Medications Allergies/Adverse Reactions: Allergies Allergy/AdvReac Type Severity Reaction Status Date / Time cortisone Allergy Severe Hives Verified 03/09/19 11:19 cephalexin Allergy Intermediate n/v and Verified 03/09/19 11:19 ineffective doxycycline Allergy Intermediate Nausea And Verified 03/09/19 11:19 Vomiting lidocaine Allergy Unknown Unknown Verified 03/09/19 11:19 Reaction Details PMH/Surg Hx/FS Hx/Imm Hx Endocrine/Hematology History: Denies: Hx Diabetes Cardiovascular History: Reports: Hx Coronary Artery Disease - CABGX2 artery blockage 2007, Hx Hypercholesterolemia, Hx Hypertension Denies: Hx Pacemaker/ICD Respiratory History: Reports: Hx Sleep Apnea Denies: Hx Asthma, Hx Chronic Obstructive Pulmonary Disease (COPD) GI History: Reports: Hx Gastroesophageal Reflux Disease History: Reports: Hx Kidney Stones Denies: Hx Renal Disease Musculoskeletal History: Reports: Hx Arthritis Sensory History: Reports: Hx Contacts or Glasses Denies: Hx Hearing Aid Opthamlomology History: Reports: Hx Contacts or Glasses Neurological History: Denies: Hx Migraine, Hx Seizures, Hx Transient Ischemic Attacks (TIA) Psychiatric History: Denies: Hx Panic Disorder - Cancer History Hx Chemotherapy: No - Surgical History Surgery Procedure, Year, and Place: gastric Bypass 2017. Cardiac double bypass 2007. left hip replaced. [employer],spinal surgery Hx Anesthesia Reactions: No Infectious Disease History: No Infectious Disease History: Denies: Hx Hepatitis, Hx Human Immunodeficiency Virus (HIV), Hx Tuberculosis , Traveled Outside the [place] in Last 30 Days - Family History Known Family History: Positive: Non-Contributory - Social History Occupation: Employed Full-time Alcohol Use: None Substance Use Type: Reports: None Smoking Status (MU): Never Smoked Tobacco Type: Smokeless Tobacco Review of Systems Positive: Chills ENT: Negative Negative: Palpitations, Chest Pain Negative: Shortness Of Breath, Cough Negative: Abdominal Pain, Vomiting, Diarrhea, Nausea Positive: dysuria, frequency. Negative: discharge, flank pain, hematuria, urgency Positive: Myalgia Negative: Rash Positive: Headache All Other Systems Reviewed And Are Negative: Yes Physical Exam - Summary Physical Exam Summary: GENERAL APPEARANCE: Aalert and cooperative obese male who appears to be in no acute distress. EYES: Conjunctiva clear. No drainage. EARS: External auditory canals and tympanic membranes clear, hearing grossly intact. NOSE: No nasal discharge. THROAT: Pharynx normal. No tonsilar inflammation, swelling, exudate, or lesions. Uvula midline. NECK: Neck supple, non-tender without lymphadenopathy. CARDIAC: Normal S1 and S2. No S3, S4 or murmurs. Rhythm is regular. There is no peripheral edema, cyanosis or pallor. Extremities are warm and well perfused. Capillary refill is less than 2 seconds. Peripheral pulses intact. LUNGS: Clear to auscultation without rales, rhonchi, wheezing or diminished breath sounds. ABDOMEN: Positive bowel sounds. Soft, nondistended, nontender. No guarding or rebound. No masses or hepatosplenomegally. No CVA tenderness MUSKULOSKELETAL: ROM intact to all extremities. No joint erythema or tenderness. Normal muscular development. Normal gait. SKIN: Skin normal color, texture and turgor with no lesions or eruptions. Triage Information Reviewed: Yes Vital Signs On Initial Exam: Initial Vitals Temp Pulse Resp BP Pulse Ox 101.1 F 97 16 141/83 98 03/09/19 14:24 03/09/19 14:24 03/09/19 14:24 03/09/19 14:24 03/09/19 14:24 Vital Signs Reviewed: Yes Procedures - Sedation Patient Received Moderate/Deep Sedation with Procedure: No Diagnostics - Vital Signs Vital Signs Temp Pulse Resp BP Pulse Ox 03/09/19 19:34 99.4 F 03/09/19 19:33 133/81 03/09/19 19:32 95 96 03/09/19 19:29 97 18 135/79 97 03/09/19 19:27 98 135/79 96 03/09/19 18:52 99.8 F 03/09/19 14:24 101.1 F 97 16 141/83 98 - Laboratory Lab Results: Lab Results 03/09/19 03/09/19 03/09/19 Range/Units 15:02 17:03 17:03 WBC 7.2 (3.5-10.8) 10^3/uL RBC 5.73 H (4.18-5.48) 10^6 /uL Hgb 15.7 (14.0-18.0) g/dL Hct 47 (42-52) % MCV 82 (80-94) fL MCH 27 (27-31) pg MCHC 33 (31-36) g/dL RDW 14 (10-15) % Plt Count 122 L (150-450) 10^3/uL MPV 7.4 (7.4-10.4) fL Neut % (Auto) 88.6 % Lymph % (Auto) 5.2 % [place] % (Auto) 5.9 % Eos % (Auto) 0.0 % Baso % (Auto) 0.3 % Absolute Neuts (auto) 6.4 (1.5-7.7) 10^3/ul Absolute Lymphs (auto) 0.4 L (1.0-4.8) 10^3/ul Absolute Monos (auto) 0.4 (0-0.8) 10^3/ul Absolute Eos (auto) 0.0 (0-0.6) 10^3/ul Absolute Basos (auto) 0.0 (0-0.2) 10^3/ul Absolute Nucleated RBC 0.0 10^3/ul Nucleated RBC % 0.0 INR (Anticoag Therapy) 1.35 H (0.82-1.09) Sodium 134 L (135-145) mmol/L Potassium 3.8 (3.5-5.0) mmol/L Chloride 101 (101-111) mmol/L Carbon Dioxide 24 (22-32) mmol/L Anion Gap 9 (2-11) mmol/L BUN 15 (6-24) mg/dL Creatinine 0.89 (0.67-1.17) mg/dL Est GFR ( Amer) 111.8 (>60) Est GFR (Non-Af Amer) 92.4 (>60) BUN/Creatinine Ratio 16.9 (8-20) Glucose 143 H (70-100) mg/dL Lactic Acid (0.5-2.0) mmol/L Calcium 9.5 (8.6-10.3) mg/dL Total Bilirubin 1.50 H (0.2-1.0) mg/dL AST 20 (13-39) U/L ALT 20 (7-52) U/L Alkaline Phosphatase 83 (34-104) U/L Troponin I 0.02 (<0.03) ng/mL C-Reactive Protein 225.81 H (<8.01) mg/L Total Protein 7.5 (6.4-8.9) g/dL Albumin 4.4 (3.2-5.2) g/dL Globulin 3.1 (2-4) g/dL Albumin/Globulin Ratio 1.4 (1-3) Urine Color Urine Appearance Urine pH (5-9) Ur Specific [place] (1.010-1.030) Urine Protein (Negative) Urine Ketones (Negative) Urine Blood (Negative) Urine Nitrate (Negative) Urine Bilirubin (Negative) Urine Urobilinogen (Negative) Ur Leukocyte Esterase (Negative) Urine WBC (Auto) (Absent) Urine RBC (Auto) (Absent) Ur Squamous Epith Cells (Absent) Urine Bacteria (Absent) Urine Glucose (Negative) 03/09/19 03/09/19 Range/Units 17:03 18:35 WBC (3.5-10.8) 10^3/uL RBC (4.18-5.48) 10^6 /uL Hgb (14.0-18.0) g/dL Hct (42-52) % MCV (80-94) fL MCH (27-31) pg MCHC (31-36) g/dL RDW (10-15) % Plt Count (150-450) 10^3/uL MPV (7.4-10.4) fL Neut % (Auto) % Lymph % (Auto) % [place] % (Auto) % Eos % (Auto) % Baso % (Auto) % Absolute Neuts (auto) (1.5-7.7) 10^3/ul Absolute Lymphs (auto) (1.0-4.8) 10^3/ul Absolute Monos (auto) (0-0.8) 10^3/ul Absolute Eos (auto) (0-0.6) 10^3/ul Absolute Basos (auto) (0-0.2) 10^3/ul Absolute Nucleated RBC 10^3/ul Nucleated RBC % INR (Anticoag Therapy) (0.82-1.09) Sodium (135-145) mmol/L Potassium (3.5-5.0) mmol/L Chloride (101-111) mmol/L Carbon Dioxide (22-32) mmol/L Anion Gap (2-11) mmol/L BUN (6-24) mg/dL Creatinine (0.67-1.17) mg/dL Est GFR ( Amer) (>60) Est GFR (Non-Af Amer) (>60) BUN/Creatinine Ratio (8-20) Glucose (70-100) mg/dL Lactic Acid 1.5 (0.5-2.0) mmol/L Calcium (8.6-10.3) mg/dL Total Bilirubin (0.2-1.0) mg/dL AST (13-39) U/L ALT (7-52) U/L Alkaline Phosphatase (34-104) U/L Troponin I (<0.03) ng/mL C-Reactive Protein (<8.01) mg/L Total Protein (6.4-8.9) g/dL Albumin (3.2-5.2) g/dL Globulin (2-4) g/dL Albumin/Globulin Ratio (1-3) Urine Color Elise Urine Appearance Clear Urine pH 5.0 (5-9) Ur Specific [place] 1.029 (1.010-1.030) Urine Protein 1+(30 mg/dl) A (Negative) Urine Ketones 2+ A (Negative) Urine Blood 1+ A (Negative) Urine Nitrate Negative (Negative) Urine Bilirubin Negative (Negative) Urine Urobilinogen Positive A (Negative) Ur Leukocyte Esterase 2+ A (Negative) Urine WBC (Auto) 3+(>20/hpf) A (Absent) Urine RBC (Auto) 2+(6-10/hpf) A (Absent) Ur Squamous Epith Cells Present A (Absent) Urine Bacteria Absent (Absent) Urine Glucose Negative (Negative) Result Diagrams: 03/09/19 17:03 03/09/19 15:02 Lab Statement: Any lab studies that have been ordered have been reviewed, and results considered in the medical decision making process. Flu Symptom Course/Dx - Course Course Of Treatment: 43-year-old male presents from urgent care with 5 day history of general malaise, chills, and body aches. States 2 days ago he started developing dysuria and frequency. History of kidney stones. Patient also notes that symptoms began after he had [place] but there is no known history of tick bite. Patient and negative rapid flu test in urgent care. Denies fever, rash, nasal congestion, ear pain, sore throat, cough , chest pain, palpitations, shortness of breath, abdominal pain, flank pain, nausea, or vomiting. Afebrile. Vital signs stable. Patient's exam is overall unremarkable. Labs showed a normal white blood cell count of 7.2, slightly elevated RBC of 5.73, mildly decreased platelet count of 122, mildly decreased sodium 134, mildly elevated total warily proven of 1.5, and an elevated CRP of 225.1. Urinalysis revealed 3+ leukocyte esterase, 3+ WBCs, 2+ RBCs, 1+ blood, 2 + ketones, and 1+ protein. Urine culture is pending. I reviewed the lab results with the patient and we discussed that based on his history and physical that symptoms most likely represent a urinary tract infection although we did also discuss the cannot fully rule out other causes including kidney stone and Lyme disease although I have a very low suspicion for these conditions. Plan is to start him on Bactrim DS 1 tablet twice daily 7 days to treat for the UTI. He is to follow-up with his primary care provider in 3-5 days if symptoms are not improving. Anticipatory guidance and warning symptoms were reviewed with the patient. Verbalizes understanding and agrees plan of care. - Diagnoses Differential Diagnosis/HQI/PQRI: Positive: Influenza, Pneumonia, Other - UTI, renal calculi, Lyme disease Provider Diagnoses: UTI (urinary tract infection) Discharge ED - Sign-Out/Discharge Documenting (check all that apply): Patient Departure - Discharge Plan Condition: Stable Disposition: HOME Prescriptions: Sulfamethox/Trimethoprim DS* [Bactrim DS 800/160 TAB*] 1 tab PO BID #14 tab Patient Education Materials: Urinary Tract Infection in Men (ED) Referrals: Kaylah SCHAEFER,Prince Rider [Primary Care Provider] - 3 Days (If no improvement in symptoms.) Additional Instructions: Your urine test in the clinic today is suggestive of a urinary tract infection. We will start you on an antibiotic to treat for the infection. We will also send a urine culture today to see what bacteria grow out and make sure the antibiotic you were prescribed is appropriate to treat the infection. It will take 48-72 hours to get these results. We will contact you if there is any change in your treatment plan. I cannot fully rule out other causes of your symptoms including kidney stone or Lyme disease however I have a very low suspicion for these conditions. Start Bactrim DS 1 tab twice daily for 7 days. Drink plenty of fluids. Follow up with your primary care provider in 3-5 days if symptoms persist. Seek immediate medical attention in the emergency room if you develop fever greater than 100.5 F, have severe abdominal pain, persistent vomiting, or any worsening of symptoms. - Billing Disposition and Condition Condition: STABLE Disposition: Home
--- NOTE | 2019-03-12 05:44 | ED ---
Imaging and Labs Follow Up Follow Up Type: Labs/Cultures Labs/Culture Result: Escherichia coli Patient Communication/Plan: Urine culture final crit Escherichia coli 25-50,000, moderate colony count Patient was put on Bactrim prior to discharge Patient Communication/Plan: this is sensitive to organism, nothing further required Provider Diagnoses: UTI (urinary tract infection)
== END 2019-03-09 19:47 | disposition home or self-care (01) ==
LOC: ED 14:07
DX: N39.0 Urinary tract infection, site not specified (principal); I25.10 Atherosclerotic heart disease of native coronary artery without angina pectoris; E78.00 Pure hypercholesterolemia, unspecified; I10 Essential (primary) hypertension; Z95.1 Presence of aortocoronary bypass graft; K21.9 Gastro-esophageal reflux disease without esophagitis; Z87.442 Personal history of urinary calculi; Z98.84 Bariatric surgery status; Z96.642 Presence of left artificial hip joint; Z88.4 Allergy status to anesthetic agent; Z88.1 Allergy status to other antibiotic agents; Z88.8 Allergy status to other drugs, medicaments and biological substances
CPT/HCPCS: 36415; 80053; 81003; 81015; 83605; 84484; 85025; 85610; 86140; 87040; 87077; 87086; 87186; 99283

== ENCOUNTER 2023-12-27 09:55 | Observation (INO) ==
[~2023-12-27 09:55] MED LIST changes: -Buffered Lidocaine 1% SYRIN* 1 ML/SYRINGE INTRADERM ONE; +Naloxone 0.4 mg VIAL 0.4 mg/ml 1 ml VIAL IV PRN; -Tranexamic Acid 1,000 MG in NS 0.9% 50 ML* (outpatient use) IV SCH; -Vancomycin(*) 1,000 MG in NS 0.9% 250 ML* 250 ML IVPB SCH
[2023-12-27] MEDS ORDERED: Chlorhexidine MOUTHWASH 0.12% 15 ML UDC ONE (10:22)
[2023-12-27 10:56] LABS: Rapid COVID-19 Molecular Undetected (Undetected)
[2023-12-27] MEDS ORDERED: ceFAZolin 2 GM PREMIX 2 GM/50 ML BAG ONE (11:02)
[2023-12-27] MEDS ORDERED: Thrombin 5,000 UNITS 1 APPLIC KIT - topical use - TOPICAL ONE (12:25)
[2023-12-27] MEDS ORDERED: Propofol 10 MG/ML 20 ML BTL ONE (12:26)
[2023-12-27] MEDS ORDERED: ceFAZolin VIAL VIAL ONE (12:26)
[2023-12-27] MEDS ORDERED: Rocuronium 50 mg VIAL 10 mg/ml 5 ml VIAL (50 mg) ONE ×2 (12:27→13:01)
[2023-12-27] MEDS ORDERED: fentaNYL 100 mcg/2 ml 50 MCG/ML VIAL ONE ×3 (12:55→15:09)
[2023-12-27] MEDS ORDERED: Acetaminophen IV 1 GM/100ML 1,000 MG/100 ML BAG IV ONE (13:59)
[2023-12-27] MEDS ORDERED: Ondansetron 4 mg VIAL 2 MG/ML 2 ml VIAL ONE (14:23)
[2023-12-27] MEDS ORDERED: Ondansetron 4 mg VIAL 2 MG/ML 2 ml VIAL IV PRN (14:44)
[2023-12-27] MEDS ORDERED: Calcium Carb (TUMS) 500 mg CHEW TAB PO PRN (14:44)
[2023-12-27] MEDS ORDERED: Morphine 2 MG/ML SYRINGE IV PRN (14:44)
[2023-12-27] MEDS ORDERED: HYDROcodone/ACETAMIN 5/325 mg TAB PO PRN (14:44)
[2023-12-27] MEDS ORDERED: Senna TAB 8.6 mg TAB PO PRN (14:44)
[2023-12-27] MEDS: fentaNYL 100 mcg/2 ml 50 MCG/ML VIAL IV PRN (15:10)
[2023-12-27] MEDS: Lactated Ringers 1000 ml BAG 1,000 ML IV SCH ×2 (16:40→22:30)
[2023-12-27] MEDS: HYDROcodone/ACETAMIN 5/325 mg TAB PO PRN (18:18)
[2023-12-27] MEDS ORDERED: Insulin GLARGINE 100 un/ml 10 ml VIAL SUBCUT SCH (21:00)
[2023-12-27] MEDS: Phenol 1.4% Throat Spray BTL MT PRN (22:06)
[2023-12-27] MEDS: Dextran 70/Hypromellose Tears Eye Drops 15 ml BTL (for Artificials Tears) BOTH EYES PRN (22:07)
[2023-12-28] MEDS: Benzocaine/Menthol LOZ MT PRN (06:11)
[2023-12-28 10:10] VITALS: BP 122/76
== END 2023-12-28 11:29 | disposition home or self-care (01) ==
LOC: SSU 09:55 → OR 09:55
PROVIDERS: ADMIT Neurological Surgery; ATTEND Neurological Surgery